=== PATIENT | female | born 2000 | race Caucasian/White ===

== ENCOUNTER 2020-03-03 20:15 | Inpatient (IN) | payer OTHER ==
[2020-03-03] MEDS ORDERED: Tranexamic Acid 1,000 MG in Sodium Chloride 0.9% 100 ML IV PRN (20:33)
[2020-03-03] MEDS ORDERED: Butorphanol 1 MG/ML SDV IVPUSH PRN (20:33)
[2020-03-03] MEDS ORDERED: Water For Irrigation,Sterile 1,000 ML Container IRR PRN (20:33)
[2020-03-03] MEDS ORDERED: Nalbuphine 10 MG/1 ML Vial IVPUSH PRN (20:33)
[2020-03-03] MEDS ORDERED: Sodium Chloride 0.9% 10 ML SDV IV PRN (20:33)
[2020-03-03] MEDS ORDERED: Sodium Chloride 0.9% 2.5 ML Syringe FLUSH PRN (20:33)
[2020-03-03] MEDS ORDERED: Sodium Chloride 0.9% 10 ML Syringe FLUSH PRN (20:33)
[2020-03-03] MEDS ORDERED: Ondansetron 4 MG/2 ML SDV IVPUSH PRN (20:33)
[2020-03-03] MEDS ORDERED: Lidocaine 1% 50 ML MDV INJECT PRN (20:33)
[2020-03-03] MEDS ORDERED: Misoprostol 200 MCG Tab PO PRN (20:33)
[2020-03-03] MEDS ORDERED: Methylergonovine 0.2 MG/1 ML Amp IM PRN (20:33)
[2020-03-03] MEDS ORDERED: Carboprost Tromethamine 250 MCG/1 ML Amp IM PRN (20:33)
[2020-03-03] MEDS ORDERED: Lactated Ringers 1,000 ML IV SCH (20:45)
[2020-03-03] MEDS ORDERED: fentaNYL 100 MCG/2 ML SDV ONE (22:01)
[2020-03-03] MEDS ORDERED: Ropivacaine HCl/PF 100 ML ONE (22:02)
--- NOTE | 2020-03-03 22:21 | PCM.PREANE ---
Preanesthetic Assessment - Anesthesia/Transfusion/Family Hx Anesthesia History: Prior Anesthesia Without Reaction Family History of Anesthesia Reaction: No Transfusion History: No Prior Transfusion(s) - Physical Assessment NPO Status Date: 03/03/20 NPO Status Time: 18:00 Weight: 74.389 kg ASA Class: 1 - Lab Values: Laboratory Last Values WBC 9.01 K/uL (4.0-11.0) 03/03/20 21:00 RBC 4.42 M/uL (4.30-5.90) 03/03/20 21:00 Hgb 12.4 g/dL (12.0-16.0) 03/03/20 21:00 Hct 37.2 % (36.0-46.0) 03/03/20 21:00 MCV 84.2 fL (80.0-98.0) 03/03/20 21:00 MCH 28.1 pg (27.0-32.0) 03/03/20 21:00 MCHC 33.3 g/dL (31.0-37.0) 03/03/20 21:00 RDW Std Deviation 39.8 fl (28.0-62.0) 03/03/20 21:00 RDW Coeff of Carrie 13 % (11.0-15.0) 03/03/20 21:00 Plt Count 244 K/uL (150-400) 03/03/20 21:00 MPV 10.30 fL (7.40-12.00) 03/03/20 21:00 Nucleated RBC % 0.0 /100WBC 03/03/20 21:00 Nucleated RBCs # 0 K/uL 03/03/20 21:00 Blood Type AB POSITIVE 03/03/20 21:00 Antibody Screen NEGATIVE 03/03/20 21:00 - Allergies Allergies/Adverse Reactions: Allergies Allergy/AdvReac Type Severity Reaction Status Date / Time No Known Allergies Allergy Verified 11/13/19 15:27 - Acknowledgements Anesthesia Type Planned: Epidural Pt an Appropriate Candidate for the Planned Anesthesia: Yes Alternatives and Risks of Anesthesia Discussed w Pt/Guardian: Yes Pt/Guardian Understands and Agrees with Anesthesia Plan: Yes PreAnesthesia Questionnaire - Past Health History Medical/Surgical History: Denies Medical/Surgical History HEENT History: Reports: None Cardiovascular History: Reports: None Respiratory History: Reports: None Gastrointestinal History: Reports: GERD Genitourinary History: Reports: None 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: Musculoskeletal History: Reports: None Neurological History: Reports: None Psychiatric History: Reports: None Endocrine/Metabolic History: Reports: None Hematologic History: Reports: None Immunologic History: Reports: None Oncologic (Cancer) History: Reports: None Dermatologic History: Reports: None - Infectious Disease History Infectious Disease History: Reports: None - Past Surgical History Head Surgeries/Procedures: Reports: None HEENT Surgical History: Reports: None Cardiovascular Surgical History: Reports: None Respiratory Surgical History: Reports: None GI Surgical History: Reports: None Female Surgical History: Reports: None Endocrine Surgical History: Reports: None Neurological Surgical History: Reports: None Musculoskeletal Surgical History: Reports: None - HOME MEDS Home Medications: Home Meds Pnv No.95/Ferrous Fum/Folic AC [ Multivitamin Tablet] 1 PO DAILY [History] - CURRENT (IN HOUSE) MEDS Current Meds: Current Medications Butorphanol Tartrate (Stadol) 1 mg IVPUSH Q1H PRN PRN Reason: Pain Carboprost Tromethamine (Hemabate Ds) 250 mcg IM ASDIRECTED PRN PRN Reason: Post Hemorrhage Lactated Ringer's (Ringers, Lactated) 1,000 mls @ 150 mls/hr IV ASDIRECTED [facility] Last Admin: 03/03/20 21:15 Dose: 150 mls/hr Oxytocin/Sodium Chloride (Oxytocin 30 Unit/500 Ml-Ns) 30 unit in 500 mls @ 500 mls/hr IV TITRATE [facility] Tranexamic Acid 1,000 mg/ (Sodium Chloride) 110 mls @ 660 mls/hr IV ONETIME PRN PRN Reason: Bleeding Lidocaine HCl (Xylocaine 1%) 50 ml INJECT ONETIME PRN PRN Reason: Laceration repair Methylergonovine Maleate (Methergine) 0.2 mg IM ASDIRECTED PRN PRN Reason: Post Hemorrhage Misoprostol (Cytotec) 200 mcg PO ONETIME PRN PRN Reason: Post Hemorrhage Nalbuphine HCl (Nubain) 10 mg IVPUSH Q1H PRN PRN Reason: Pain (severe 7-10) Ondansetron HCl (Zofran) 4 mg IVPUSH Q6H PRN PRN Reason: Nausea/Vomiting Sodium Chloride (Saline Flush) 10 ml FLUSH ASDIRECTED PRN PRN Reason: Keep Vein Open Sodium Chloride (Saline Flush) 2.5 ml FLUSH ASDIRECTED PRN PRN Reason: Keep Vein Open Sodium Chloride (Normal Saline) 10 ml IV ASDIRECTED PRN PRN Reason: IV Use Sterile Water (Sterile Water For Irrigation) 1,000 ml IRR ASDIRECTED PRN PRN Reason: delivery Discontinued Medications Fentanyl (Sublimaze) Confirm Administered Dose 100 mcg .ROUTE .STK-MED ONE Stop: 03/03/20 22:02 Ropivacaine (Naropin 0.2%) Confirm Administered Dose 100 mls @ as directed .ROUTE .STK-MED ONE Stop: 03/03/20 22:03
--- NOTE | 2020-03-03 22:24 | PCM.PRNOTE ---
- Free Text/Narrative Note: Anes NOte Aptient requests epidural for L&D. Sitting position, level L2-L3 midline approach. Sterile technique. Chloraprep scrub to lumbar area. Sterile fenestrated drape applied. Epidural spaced easily achieved single attempt with ease using ARACELI technique. ARACELI at 3 cm. Cath threaded 5 cm with ease. Cath secured a t10 cm at skin using sterile clear adhesive dressing. 2212-test 3 cc 1.5% lido with epi negative. 2215 load 10 cc 0.2% ropivicaine wtih 1 mcg cc fentanyl inslow divided doses. 2219 pump started wtih 90 cc same solution. Rate is 8 cc hr with 6 cc q 20 min prn bolus. Delaney well Time with patient [phone] Shakeel Rodriges [employer]
[2020-03-03] MEDS: Oxytocin/0.9 % Sodium Chloride 30 UNIT/500 ML BAG IV SCH (23:44)
--- NOTE | 2020-03-04 00:15 | PCM.DEL ---
L & D Note - General Info Date of Service: 03/04/20 - Delivery Note Labor: Spontaneous Delivery Outcome: Livebirth Delivery Method: Spontaneous Vaginal Delivery-Single Presentation: Left Occiput Anterior (GABBY) Nuchal Cord: None Anesthesia Type: None Local Anesthetic Volume: 2cc Episiotomy Type: None Laceration: None Cord: 3 Vessels Estimated Blood Loss: 300 Resuscitation Needed: No Score 1 min: 8 Score 5 min: 9 Delivery Comments (Free Text/Narrative):: Live female delivered at 2341 , weight 3140g 8/9 - General Info Date of Service: 03/04/20 - Patient Data Weight - Most Recent: 74.389 kg Lab Results Last 24 Hours: Laboratory Results - last 24 hr 03/03/20 03/03/20 Range/Units 21:00 21:00 WBC 9.01 (4.0-11.0) K/uL RBC 4.42 (4.30-5.90) M/uL Hgb 12.4 (12.0-16.0) g/dL Hct 37.2 (36.0-46.0) % MCV 84.2 (80.0-98.0) fL MCH 28.1 (27.0-32.0) pg MCHC 33.3 (31.0-37.0) g/dL RDW Std Deviation 39.8 (28.0-62.0) fl RDW Coeff of Carrie 13 (11.0-15.0) % Plt Count 244 (150-400) K/uL MPV 10.30 (7.40-12.00) fL Nucleated RBC % 0.0 /100WBC Nucleated RBCs # 0 K/uL Blood Type AB POSITIVE Antibody Screen NEGATIVE Med Orders - Current: Current Medications Butorphanol Tartrate (Stadol) 1 mg IVPUSH Q1H PRN PRN Reason: Pain Carboprost Tromethamine (Hemabate Ds) 250 mcg IM ASDIRECTED PRN PRN Reason: Post Hemorrhage Lactated Ringer's (Ringers, Lactated) 1,000 mls @ 150 mls/hr IV ASDIRECTED [facility] Last Admin: 03/03/20 21:15 Dose: 150 mls/hr Oxytocin/Sodium Chloride (Oxytocin 30 Unit/500 Ml-Ns) 30 unit in 500 mls @ 500 mls/hr IV TITRATE [facility] Last Admin: 03/03/20 23:44 Dose: 500 mls/hr Tranexamic Acid 1,000 mg/ (Sodium Chloride) 110 mls @ 660 mls/hr IV ONETIME PRN PRN Reason: Bleeding Lidocaine HCl (Xylocaine 1%) 50 ml INJECT ONETIME PRN PRN Reason: Laceration repair Methylergonovine Maleate (Methergine) 0.2 mg IM ASDIRECTED PRN PRN Reason: Post Hemorrhage Misoprostol (Cytotec) 200 mcg PO ONETIME PRN PRN Reason: Post Hemorrhage Nalbuphine HCl (Nubain) 10 mg IVPUSH Q1H PRN PRN Reason: Pain (severe 7-10) Ondansetron HCl (Zofran) 4 mg IVPUSH Q6H PRN PRN Reason: Nausea/Vomiting Sodium Chloride (Saline Flush) 10 ml FLUSH ASDIRECTED PRN PRN Reason: Keep Vein Open Sodium Chloride (Saline Flush) 2.5 ml FLUSH ASDIRECTED PRN PRN Reason: Keep Vein Open Sodium Chloride (Normal Saline) 10 ml IV ASDIRECTED PRN PRN Reason: IV Use Sterile Water (Sterile Water For Irrigation) 1,000 ml IRR ASDIRECTED PRN PRN Reason: delivery Last Admin: 03/03/20 23:51 Dose: 1,000 ml Discontinued Medications Fentanyl (Sublimaze) Confirm Administered Dose 100 mcg .ROUTE .STK-MED ONE Stop: 03/03/20 22:02 Ropivacaine (Naropin 0.2%) Confirm Administered Dose 100 mls @ as directed .ROUTE .STK-MED ONE Stop: 03/03/20 22:03 - Problem List & Annotations (1) Vaginal delivery SNOMED Code(s): 732777347 Code(s): O80 - ENCOUNTER FOR FULL-TERM UNCOMPLICATED DELIVERY Status: Acute Current Visit: No - Problem List Review Problem List Initiated/Reviewed/Updated: Yes - My Orders Last 24 Hours: My Active Orders 03/03/20 20:33 Patient Status [ADT] Routine May Shower [RC] ASDIRECTED Notify Provider [RC] PRN Up ad Brenda [RC] ASDIRECTED Vital Signs [RC] PER UNIT ROUTINE Butorphanol [Stadol] 1 mg IVPUSH Q1H PRN Carboprost Tromethamine [Hemabate DS] 250 mcg IM ASDIRECTED PRN Lidocaine 1% [Xylocaine 1%] 50 ml INJECT ONETIME PRN Methylergonovine [Methergine] 0.2 mg IM ASDIRECTED PRN Nalbuphine [Nubain] 10 mg IVPUSH Q1H PRN Ondansetron [Zofran] 4 mg IVPUSH Q6H PRN Sodium Chloride 0.9% [Normal Saline] 10 ml IV ASDIRECTED PRN Sodium Chloride 0.9% [Saline Flush] 10 ml FLUSH ASDIRECTED PRN Sodium Chloride 0.9% [Saline Flush] 2.5 ml FLUSH ASDIRECTED PRN Tranexamic Acid [Cyklokapron] 1,000 mg Sodium Chloride 0.9% [Normal Saline] 100 ml IV ONETIME Water For Irrigation,Sterile [Sterile Water for Irrigation] 1,000 ml IRR ASDIRECTED PRN miSOPROStoL [Cytotec] 200 mcg PO ONETIME PRN Scalp Electrode [WOMSER] Per Unit Routine Peripheral IV Insertion Adult [OM.PC] Routine Resuscitation Status Routine 03/03/20 20:45 Lactated Ringers [Ringers, Lactated] 1,000 ml IV ASDIRECTED Oxytocin/0.9 % Sodium Chloride [Oxytocin 30 Unit/500 ML-NS] 30 unit in 500 ml IV TITRATE 03/03/20 21:00 RPR (SYPHILIS SERO) W/ RFLX [REF] Routine
[2020-03-04] MEDS ORDERED: Witch Hazel Medicated Pads 40/Jar TOP PRN (00:18)
[2020-03-04] MEDS ORDERED: Ibuprofen 800 MG Tab PO PRN (00:18)
[2020-03-04] MEDS ORDERED: Acetaminophen 500 MG Tab PO PRN ×2 (00:18)
[2020-03-04] MEDS ORDERED: Bisacodyl 10 MG Supp RECTAL PRN (00:18)
[2020-03-04] MEDS ORDERED: Ibuprofen 400 MG Tab PO PRN (00:18)
[2020-03-04] MEDS ORDERED: Docusate Sodium 100 MG Cap PO PRN (00:18)
[2020-03-04] MEDS ORDERED: Lanolin 100% Cream 7 GM Tube TOP PRN (00:18)
[2020-03-04] MEDS ORDERED: oxyCODONE 5 MG Tab PO PRN (00:18)
[2020-03-04] MEDS ORDERED: Benzocaine/Menthol 20%-0.5% Spray 78 GM Cannister TOP PRN (00:18)
[2020-03-04] MEDS: Oxytocin/0.9 % Sodium Chloride 30 UNIT/500 ML BAG IV SCH (01:00)
--- NOTE | 2020-03-04 11:16 | OR ---
SURGEON: ATUL KOWALSKI DATE OF PROCEDURE: 03/04/2020 PREOPERATIVE DIAGNOSIS: A 19-year-old G2, P1-0-0-1 at 39 weeks, who came in early labor. POSTOPERATIVE DIAGNOSIS: A 19-year-old G2, P1-0-0-1 at 39 weeks, who came in early labor. PROCEDURE: Normal spontaneous vaginal delivery. ANESTHESIA: Epidural. ESTIMATED BLOOD LOSS: 300 mL. NOTES AND FINDINGS: A live female delivered at 2341. scores are 8 and 9. Weight is 3140 g. BRIEF HISTORY ABOUT THE PATIENT: She is a 19-year-old G2, P1-0-0-1 low-risk patient, who came in complaining of contractions. She was noted to be about 6 cm dilated. She was requesting epidural, which she got. She made a normal labor progress. After being AROM'ed, clear fluid was noted. Then, she became fully dilated. DESCRIPTION OF PROCEDURE: With the patient being fully dilated, she was encouraged to push. With good pushing effort, she delivered the head, subsequently by the anterior and posterior shoulders. The body of the baby was delivered. The infant was placed on maternal abdomen. Delayed cord clamping was observed. Cord blood gases were obtained. The placenta was delivered via controlled cord traction. Perineum was inspected and noted to be hemostatic and intact . Uterus was noted to be well contracted. All instrument and pad counts were correct x2. The patient was left in the labor and delivery room in stable condition. IMAN ARMENDARIZ /[id number] JIM
--- NOTE | 2020-03-04 14:00 | PCM48HPAN ---
Post Anesthesia Note - EVALUATION WITHIN 48HRS OF ANESTHETIC Vital Signs in Normal Range: Yes Patient Participated in Evaluation: Yes Respiratory Function Stable: Yes Airway Patent: Yes Cardiovascular Function Stable: Yes Hydration Status Stable: Yes Pain Control Satisfactory: Yes Nausea and Vomiting Control Satisfactory: Yes Mental Status Recovered: Yes Vital Signs: Last Vital Signs Temp 36.4 C 03/04/20 07:40 Pulse 56 L 03/04/20 07:40 Resp 16 03/04/20 07:40 BP 103/57 L 03/04/20 07:40 Pulse Ox 96 03/04/20 07:40 - COMMENTS/OBSERVATIONS Free Text/Narrative:: Did well. No problems noted.
--- NOTE | 2020-03-04 16:38 | PCM.PN ---
- General Info Date of Service: 03/04/20 Functional Status: Reports: Pain Controlled, Tolerating Diet, Ambulating, Urinating - Review of Systems General: Reports: No Symptoms HEENT: Reports: No Symptoms Pulmonary: Reports: No Symptoms Cardiovascular: Reports: No Symptoms Gastrointestinal: Reports: No Symptoms Genitourinary: Reports: No Symptoms Musculoskeletal: Reports: No Symptoms Skin: Reports: No Symptoms Neurological: Reports: No Symptoms Psychiatric: Reports: No Symptoms - Patient Data Vitals - Most Recent: Last Vital Signs Temp 36.4 C 03/04/20 07:40 Pulse 56 L 03/04/20 07:40 Resp 16 03/04/20 07:40 BP 103/57 L 03/04/20 07:40 Pulse Ox 96 03/04/20 07:40 Weight - Most Recent: 164 lb Lab Results Last 24 Hours: Laboratory Results - last 24 hr 03/03/20 03/03/20 Range/Units 21:00 21:00 WBC 9.01 (4.0-11.0) K/uL RBC 4.42 (4.30-5.90) M/uL Hgb 12.4 (12.0-16.0) g/dL Hct 37.2 (36.0-46.0) % MCV 84.2 (80.0-98.0) fL MCH 28.1 (27.0-32.0) pg MCHC 33.3 (31.0-37.0) g/dL RDW Std Deviation 39.8 (28.0-62.0) fl RDW Coeff of Carrie 13 (11.0-15.0) % Plt Count 244 (150-400) K/uL MPV 10.30 (7.40-12.00) fL Nucleated RBC % 0.0 /100WBC Nucleated RBCs # 0 K/uL Blood Type AB POSITIVE Antibody Screen NEGATIVE Med Orders - Current: Current Medications Acetaminophen (Tylenol Extra Strength) 500 mg PO Q4H PRN PRN Reason: Pain Acetaminophen (Tylenol Extra Strength) 1,000 mg PO Q4H PRN PRN Reason: Pain Benzocaine/Menthol (Dermoplast Pain Relief 20%-0.5% [place]) 78 gm TOP ASDIRECTED PRN PRN Reason: Perineal Comfort Measure Bisacodyl (Dulcolax) 10 mg RECTAL ONETIME PRN PRN Reason: Constipation Carboprost Tromethamine (Hemabate Ds) 250 mcg IM ASDIRECTED PRN PRN Reason: Post Hemorrhage Docusate Sodium (Colace) 100 mg PO BID PRN PRN Reason: Constipation Emollient Ointment (Lansinoh Hpa) 0 gm TOP ASDIRECTED PRN PRN Reason: Sore Nipples Lactated Ringer's (Ringers, Lactated) 1,000 mls @ 150 mls/hr IV ASDIRECTED [facility] Last Admin: 03/03/20 21:15 Dose: 150 mls/hr Oxytocin/Sodium Chloride (Oxytocin 30 Unit/500 Ml-Ns) 30 unit in 500 mls @ 500 mls/hr IV TITRATE [facility] Last Admin: 03/04/20 01:00 Dose: 500 mls/hr Ibuprofen (Motrin) 400 mg PO Q4H PRN PRN Reason: Pain Ibuprofen (Motrin) 800 mg PO Q6H PRN PRN Reason: Pain Lidocaine HCl (Xylocaine 1%) 50 ml INJECT ONETIME PRN PRN Reason: Laceration repair Methylergonovine Maleate (Methergine) 0.2 mg IM ASDIRECTED PRN PRN Reason: Post Hemorrhage Misoprostol (Cytotec) 200 mcg PO ONETIME PRN PRN Reason: Post Hemorrhage Nalbuphine HCl (Nubain) 10 mg IVPUSH Q1H PRN PRN Reason: Pain (severe 7-10) Ondansetron HCl (Zofran) 4 mg IVPUSH Q6H PRN PRN Reason: Nausea/Vomiting Oxycodone HCl (Oxycodone) 5 mg PO Q2H PRN PRN Reason: Pain Sodium Chloride (Saline Flush) 10 ml FLUSH ASDIRECTED PRN PRN Reason: Keep Vein Open Sodium Chloride (Saline Flush) 2.5 ml FLUSH ASDIRECTED PRN PRN Reason: Keep Vein Open Sodium Chloride (Normal Saline) 10 ml IV ASDIRECTED PRN PRN Reason: IV Use Sterile Water (Sterile Water For Irrigation) 1,000 ml IRR ASDIRECTED PRN PRN Reason: delivery Last Admin: 03/03/20 23:51 Dose: 1,000 ml Witch Liane (Tucks) 1 pad TOP ASDIRECTED PRN PRN Reason: comfort care Discontinued Medications Butorphanol Tartrate (Stadol) 1 mg IVPUSH Q1H PRN PRN Reason: Pain Stop: 03/04/20 00:17 Fentanyl (Sublimaze) Confirm Administered Dose 100 mcg .ROUTE .STK-MED ONE Stop: 03/03/20 22:02 Last Admin: 03/04/20 07:28 Dose: Not Given Tranexamic Acid 1,000 mg/ (Sodium Chloride) 110 mls @ 660 mls/hr IV ONETIME PRN PRN Reason: Bleeding Ropivacaine (Naropin 0.2%) Confirm Administered Dose 100 mls @ as directed .ROUTE .STK-MED ONE Stop: 03/03/20 22:03 Last Admin: 03/04/20 07:28 Dose: Not Given - Exam General: Alert, Oriented, Cooperative, No Acute Distress HEENT: Pupils Equal, Pupils Reactive Neck: Supple, Trachea Midline, No JVD Lungs: Normal Respiratory Effort Cardiovascular: Regular Rate, Regular Rhythm, No Murmurs GI/Abdominal Exam: Soft, Non-Tender, No Organomegaly, No Distention Back Exam: Normal Inspection, Full Range of Motion Extremities: Normal Inspection, Normal Range of Motion, Non-Tender, No Pedal Edema Skin: Warm, Dry, Intact Neurological: No New Focal Deficit Psy/Mental Status: Alert, Normal Affect, Normal Mood Sepsis Event Note - Evaluation Sepsis Screening Result: No Definite Risk - Focused Exam Vital Signs: Vital Signs Temp Pulse Resp BP Pulse Ox 03/04/20 07:40 36.4 C 56 L 16 103/57 L 96 Date Exam was Performed: 03/04/20 Time Exam was Performed: 16:34 - Problem List Review Problem List Initiated/Reviewed/Updated: Yes - Assessment Assessment:: 19yo PPD0 s/p , stable and recovering well. - Plan Plan:: vitals stable. Bleeding light, denies s/s of anemia Tolerating PO and ambulating. Desires to go home tonight after 24hrs, stable for discharge, given care instructions.
[2020-03-04 20:21] VITALS: BP 113/77; PULSE 68
== END 2020-03-04 23:58 | disposition home or self-care (01) | DRG 807 ==
LOC: MW.OBCHECK 20:15 → MW.OB 20:15 → OBSVTOIN 23:41 → MW.OBCHECK 23:41 → MW.OB 03-04 02:46
PROVIDERS: ADMIT Obstetrics & Gynecology; ATTEND Obstetrics & Gynecology
PROC: 10E0XZZ Delivery of Products of Conception, External Approach (ICD-10-PCS; principal; 2020-03-03)
PROC: 3E0R3BZ Introduction of Anesthetic Agent into Spinal Canal, Percutaneous Approach (ICD-10-PCS; 2020-03-03)
DX: O80 Encounter for full-term uncomplicated delivery (principal); Z37.0 Single live birth; Z3A.39 39 weeks gestation of pregnancy
CPT/HCPCS: 36415; 59025; 59409; 85027; 86592; 86593; 86850; 86900; 86901; J2590; J7120

== ENCOUNTER 2021-04-02 09:28 | Emergency (ER) | payer BC, OTHER ==
[2021-04-02] MEDS ORDERED: Ketorolac 15 MG/ML SDV IVPUSH ONE (09:54)
[2021-04-02 10:24] LABS: BLOOD UREA NITROGEN,BUN 10 mg/dL (7.0-18.0); CARBON DIOXIDE,CO2 26.3 mmol/L (21.0-32.0); CHLORIDE,CL 104 mmol/L (98-107); GLUCOSE RANDOM 91 mg/dL (74-106); LIPASE 110 U/L (73-393); POTASSIUM,K 3.7 mmol/L (3.5-5.1); SODIUM,NA 139 mmol/L (136-145)
[2021-04-02] MEDS ORDERED: Iopamidol 755 MG/ML 500 ML Multipack Bottle IVPUSH STA (11:37)
--- NOTE | 2021-04-02 12:44 | CT ---
INDICATION: Right lower quadrant pain and flank pain. TECHNIQUE: CT of the abdomen and pelvis without and with 100 cc Isovue 370 IV contrast. Coronal and sagittal reconstructions. COMPARISON: None. FINDINGS: Small low-attenuation lesion in the lateral segment of the left hepatic lobe is too small to characterize but most likely benign (series 301, image 50). Hepatic and portal veins are patent. The gallbladder, spleen, pancreas, and adrenal glands are negative. Symmetric enhancement of the kidneys. No hydronephrosis. No obstructing urinary calculi. Phlebolith in the left pelvis adjacent to the distal left ureter. The bladder and uterus are normal in appearance. Mildly prominent periuterine vessels bilaterally. Physiologic follicles in both ovaries. There are multiple fluid distended loops of distal small bowel in the pelvis with wall thickening, likely representing a nonspecific enteritis (series 301, image 117). No evidence of bowel obstruction. The colon is normal in appearance. Negative appendix. No intraperitoneal free air or fluid. Small fat containing midline ventral hernia. There appears to be some skin thickening at the umbilicus. No lymphadenopathy. The bones are unremarkable. The lung bases are clear. IMPRESSION: Multiple fluid distended loops of small bowel in the pelvis with wall thickening likely representing a nonspecific enteritis. Please note that all CT scans at this facility use dose modulation, iterative reconstruction, and/or weight-based dosing when appropriate to reduce radiation dose to as low as reasonably achievable. Dictated by Lennie Cruz MD @ 04/02/2021 12:41:[address] Lennie Cruz @ Apr 02 2021 12:41PM
--- NOTE | 2021-04-02 13:04 | EDM.PDOC ---
ED HPI GENERAL MEDICAL PROBLEM - General Chief Complaint: Abdominal Pain Stated Complaint: ABD PAIN Time Seen by Provider: 04/02/21 09:44 - History of Present Illness INITIAL COMMENTS - FREE TEXT/NARRATIVE: CHIEF COMPLAINT(S): Right lower quadrant abdominal pain HISTORY OF PRESENT ILLNESS: This is a 21-year-old woman in with out any significant past medical history who comes to the emergency department with a chief complaint of right lower quadrant abdominal pain. The patient states that she is experiencing right lower quadrant abdominal pain that wraps around her lower part of her abdomen rated 6 out of 10 and intermittent sharp. She states that she has associated nausea but no vomiting or diarrhea. She has not yet tried any pain medication. She denies any aggravating factors such as eating or movement. She denies any relieving factors. She states that it got worse last night around 10 PM. She denies any dysuria, hematuria, vaginal bleeding or vaginal discharge. She denies any fevers or chills. She states that she is concerned about appendicitis. She denies any history of kidney stones and her last menstrual period was approximately 2 weeks ago. REVIEW OF SYSTEMS: Constitutional: Denies fever, chills. Eyes: Denies eye pain Ears, Nose, Mouth, & Throat: Denies earache Cardiovascular: Denies chest pain Respiratory: Denies shortness of breath Gastrointestinal: Positive for right lower quadrant abdominal pain and nausea. Denies vomiting, diarrhea, hematochezia. Genitourinary: Denies hematuria, vaginal bleeding, vaginal discharge skin:Denies a rash MSK: Denies joint pain Neurological: Denies blurred vision Psychiatric: Denies depression PAST MEDICAL HISTORY: As per history of present illness and as reviewed below otherwise noncontributory. SURGICAL HISTORY: As per history of present illness and as reviewed below otherwise noncontributory. LMP: 2 weeks ago SOCIAL HISTORY: As per history of present illness and as reviewed below otherwise noncontributory. FAMILY HISTORY: As per history of present illness and as reviewed below otherwise noncontributory. EXAMINATION OF ORGAN SYSTEMS/BODY AREAS: Constitutional: Blood pressure is 131/79, heart rate 83, respiratory rate 18 wit h an oxygen saturation 96% on room air. Temperature 36.3 General: Overall well-appearing woman who is in no acute distress. Psychiatric: Appropriate mood and affect. Eyes: No scleral icterus or conjunctival erythema ENMT: Moist mucous membranes. No pharyngeal erythema Cardiovascular: Regular, rate, and rhythm. No gallops, murmurs, or rubs. Bilateral upper extremity pulses symmetric and intact. No peripheral edema. No JVD. Respiratory: Lungs clear to auscultation bilaterally. No wheezes, rales, or rhonchi. Gastrointestinal: Soft, tenderness to palpation in the right upper quadrant. No rebound or guarding. Nondistended. Positive Nunes's. Negative McBurney's. Normoactive bowel sounds Genitourinary: Mild suprapubic tenderness. No CVA tenderness Musculoskeletal: Normal range of motion. Skin: No lesions or abrasions. Neurological: Alert, GCS 15 MEDICAL DECISION MAKING AND COURSE IN THE ED WITH INTERPRETATION/REVIEW OF DIAGNOSTIC STUDIES: This is a 21-year-old woman without any significant past medical history who comes to the emergency department with a acute right lower quadrant abdominal pain who has right upper quadrant abdominal pain on examination who has stable vital signs. At this time will obtain a qualitative hCG. I did discuss with her that I did perform a bedside ultrasound to evaluate for cholecystitis. Bedside right upper quadrant ultrasound Multiple views of the gallbladder were obtained and there was no evidence of gallbladder wall thickening, cholelithiasis or CBD dilation. Report was printed and placed in chart. Given that the right upper quadrant ultrasound is negative we will obtain labs including CBC, CMP, lipase. Will obtain a urinalysis. In addition we will obtain a CT with and without contrast to evaluate for appendicitis versus nephrolithiasis given her description of her symptoms. I did offer the patient pain medication and she did not want any at this time. The radiological images were viewed by myself along with reading the report from the radiologist. CT abdomen pelvis with and without contrast does not reveal any evidence of appendicitis, cholelithiasis. There are multiple fluid distended loops of the distal small bowel in the pelvis with wall thickening likely representing nonspecific enteritis. No evidence of bowel obstruction. The colon is normal in appearance. There is a mild fat-containing ventral hernia. After imaging I did discuss results with the patient. Her vitals continue to remain stable and she did not have any vomiting. I did discuss with her at this time that the only abnormality found was colitis. I discussed with her symptomatic treatment of this if she were to develop worsening symptoms. She states that her daughter did just have an episode of nausea, vomiting, and diarrhea. She was amenable discharge at this time and had no further questions. She was given strict return precautions. DISPOSITION: The patient was discharged home in stable condition. The patient will follow up with primary care physician in 3 to 5 days CONDITION: Fair PROCEDURES: Bedside right upper quadrant ultrasound FINAL IMPRESSION(S)/DIAGNOSES: 1 1. Acute abdominal pain likely secondary to colitis Javier Evans M.D. RLQ Pain Score (Numeric/FACES): 6 - Related Data Allergies Allergy/AdvReac Type Severity Reaction Status Date / Time No Known Allergies Allergy Verified 04/02/21 09:44 Home Meds: Home Meds . [No Known Home Meds] 04/02/21 [History] Past Medical History - Past Health History Medical/Surgical History: Denies Medical/Surgical History HEENT History: Reports: None Cardiovascular History: Reports: None Respiratory History: Reports: None Gastrointestinal History: Reports: GERD Genitourinary History: Reports: None [employer]IST History: Reports: Musculoskeletal History: Reports: None Neurological History: Reports: None Psychiatric History: Reports: None Endocrine/Metabolic History: Reports: None Hematologic History: Reports: None Immunologic History: Reports: None Oncologic (Cancer) History: Reports: None Dermatologic History: Reports: None - Infectious Disease History Infectious Disease History: Reports: None - Past Surgical History Head Surgeries/Procedures: Reports: None HEENT Surgical History: Reports: None Cardiovascular Surgical History: Reports: None Respiratory Surgical History: Reports: None GI Surgical History: Reports: None Female Surgical History: Reports: None Endocrine Surgical History: Reports: None Neurological Surgical History: Reports: None Musculoskeletal Surgical History: Reports: None Social & Family History - Family History Family Medical History: No Pertinent Family History - Tobacco Use Tobacco Use Status *Q: Never Tobacco User Second Hand Smoke Exposure: No - Caffeine Use Caffeine Use: Reports: None - Recreational Drug Use Recreational Drug Use: No ED ROS GENERAL - Review of Systems Review Of Systems: See Below ED EXAM, GENERAL - Physical Exam Exam: See Below Course - Vital Signs Last Recorded V/S: Last Vital Signs Temp 36.4 C 04/02/21 13:12 Pulse 95 04/02/21 13:12 Resp 14 04/02/21 11:53 BP 117/54 L 04/02/21 13:12 Pulse Ox 97 04/02/21 13:12 - Orders/Labs/Meds Labs: Laboratory Tests 04/02/21 04/02/21 04/02/21 Range/Units 09:41 09:41 09:42 WBC 9.61 (4.0-11.0) K/uL RBC 5.06 (4.30-5.90) M/uL Hgb 14.7 (12.0-16.0) g/dL Hct 43.5 (36.0-46.0) % MCV 86.0 (80.0-98.0) fL MCH 29.1 (27.0-32.0) pg MCHC 33.8 (31.0-37.0) g/dL RDW Std Deviation 41.4 (28.0-62.0) fl RDW Coeff of Carrie 13 (11.0-15.0) % Plt Count 271 (150-400) K/uL MPV 10.20 (7.40-12.00) fL Neut % (Auto) 75.8 (48.0-80.0) % Lymph % (Auto) 17.8 (16.0-40.0) % Karnes % (Auto) 5.6 (0.0-15.0) % Eos % (Auto) 0.5 (0.0-7.0) % Baso % (Auto) 0.3 (0.0-1.5) % Neut # (Auto) 7.3 H (1.4-5.7) K/uL Lymph # (Auto) 1.7 (0.6-2.4) K/uL Karnes # (Auto) 0.5 (0.0-0.8) K/uL Eos # (Auto) 0.1 (0.0-0.7) K/uL Baso # (Auto) 0.0 (0.0-0.1) K/uL Nucleated RBC % 0.0 /100WBC Nucleated RBCs # 0 K/uL Sodium (136-145) mmol/L Potassium (3.5-5.1) mmol/L Chloride (98-107) mmol/L Carbon Dioxide (21.0-32.0) mmol/L BUN (7.0-18.0) mg/dL Creatinine (0.6-1.0) mg/dL Est Cr Clr Drug Dosing mL/min Estimated GFR (MDRD) ml/min Glucose (74-106) mg/dL Calcium (8.5-10.1) mg/dL Total Bilirubin (0.2-1.0) mg/dL AST (15-37) IU/L ALT (14-63) IU/L Alkaline Phosphatase (46-116) U/L Total Protein (6.4-8.2) g/dL Albumin (3.4-5.0) g/dL Globulin (2.6-4.0) g/dL Albumin/Globulin Ratio (0.9-1.6) Lipase (73-393) U/L Urine Color YELLOW Urine Appearance CLEAR Urine pH 7.5 (5.0-8.0) Ur Specific Kent 1.010 (1.001-1.035) Urine Protein NEGATIVE (NEGATIVE) mg/dL Urine Glucose (UA) NEGATIVE (NEGATIVE) mg/dL Urine Ketones NEGATIVE (NEGATIVE) mg/dL Urine Occult Blood NEGATIVE (NEGATIVE) Urine Nitrite NEGATIVE (NEGATIVE) Urine Bilirubin NEGATIVE (NEGATIVE) Urine Urobilinogen 0.2 (<2.0) EU/dL Ur Leukocyte Esterase NEGATIVE (NEGATIVE) Urine HCG, Qual NEGATIVE (NEGATIVE) 04/02/21 Range/Units 09:52 WBC (4.0-11.0) K/uL RBC (4.30-5.90) M/uL Hgb (12.0-16.0) g/dL Hct (36.0-46.0) % MCV (80.0-98.0) fL MCH (27.0-32.0) pg MCHC (31.0-37.0) g/dL RDW Std Deviation (28.0-62.0) fl RDW Coeff of Carrie (11.0-15.0) % Plt Count (150-400) K/uL MPV (7.40-12.00) fL Neut % (Auto) (48.0-80.0) % Lymph % (Auto) (16.0-40.0) % Karnes % (Auto) (0.0-15.0) % Eos % (Auto) (0.0-7.0) % Baso % (Auto) (0.0-1.5) % Neut # (Auto) (1.4-5.7) K/uL Lymph # (Auto) (0.6-2.4) K/uL Karnes # (Auto) (0.0-0.8) K/uL Eos # (Auto) (0.0-0.7) K/uL Baso # (Auto) (0.0-0.1) K/uL Nucleated RBC % /100WBC Nucleated RBCs # K/uL Sodium 139 (136-145) mmol/L Potassium 3.7 (3.5-5.1) mmol/L Chloride 104 (98-107) mmol/L Carbon Dioxide 26.3 (21.0-32.0) mmol/L BUN 10 (7.0-18.0) mg/dL Creatinine 0.7 (0.6-1.0) mg/dL Est Cr Clr Drug Dosing 122.73 mL/min Estimated GFR (MDRD) > 60.0 ml/min Glucose 91 (74-106) mg/dL Calcium 8.5 (8.5-10.1) mg/dL Total Bilirubin 0.4 (0.2-1.0) mg/dL AST 15 (15-37) IU/L ALT 23 (14-63) IU/L Alkaline Phosphatase 45 L (46-116) U/L Total Protein 7.4 (6.4-8.2) g/dL Albumin 4.1 (3.4-5.0) g/dL Globulin 3.3 (2.6-4.0) g/dL Albumin/Globulin Ratio 1.2 (0.9-1.6) Lipase 110 (73-393) U/L Urine Color Urine Appearance Urine pH (5.0-8.0) Ur Specific Kent (1.001-1.035) Urine Protein (NEGATIVE) mg/dL Urine Glucose (UA) (NEGATIVE) mg/dL Urine Ketones (NEGATIVE) mg/dL Urine Occult Blood (NEGATIVE) Urine Nitrite (NEGATIVE) Urine Bilirubin (NEGATIVE) Urine Urobilinogen (<2.0) EU/dL Ur Leukocyte Esterase (NEGATIVE) Urine HCG, Qual (NEGATIVE) Meds: Medications Discontinued Medications Generic Name Dose Route Start Last Admin Trade Name Freq PRN Reason Stop Dose Admin Iopamidol 100 ml 04/02/21 11:37 04/02/21 11:45 Iopamidol 755 Mg/Ml 500 Ml Multipack Bottle IVPUSH 04/02/21 11:38 100 ml ONETIME STA Administration Ketorolac Tromethamine 15 mg 04/02/21 09:54 05/19/21 10:19 Ketorolac 15 Mg/Ml Sdv IVPUSH 04/02/21 09:55 Not Given ONETIME ONE Departure - Departure Time of Disposition: 13:03 Disposition: Home, Self-Care 01 Condition: Fair Clinical Impression: Colitis - Discharge Information Instructions: Colitis Referrals: PCP,None [Primary Care Provider] - Forms: ED Department Discharge Additional Instructions: You evaluate today on an emergent basis. All your lab work-up was normal. Your CT did show some evidence of small bowel wall thickening with some fluid in your bowel which is indicative of a colitis. This could just be early stomach flu. Given that she has not had any vomiting or diarrhea I would still continue with a bland diet including soups and maintain fluid hydration. If you have any worsening abdominal pain, blood in your stool, inability to eat or drink I would return to the emergency department. Otherwise please follow-up with your primary care physician within 3 to 5 days. At this time for the diarrhea we do recommend: -Please keep hydrated with Pedialyte or Gatorade -Diet: eat potatoes, noodles, rice, crackers, soup, boiled vegetables -AVOID: fatty foods and dairy -You may purchase over the counter probiotics that do not contain dairy We do not recommend antibiotics at this time. Antibiotics can worsen the diarrhea and have unwanted side effects Please return to ER if you have fever, bloody stools, or inability to tolerate fluids [facility] [address] [place] [address] [place] [address] The patient is informed of any results of their evaluation and diagnostic workup and all questions are answered. They are given discharge instructions and return precautions. The patient is stable for discharge. The patient states they understand and agree with the plan and that they will return if their symptoms get worse or if they have any new concerns. The following information is given to patients seen in the emergency department who are being discharged to home. This information is to outline your options for follow-up care. We provide all patients seen in our emergency department with a follow-up referral. The need for follow-up, as well as the timing and circumstances, are variable depending upon the specifics of your emergency department visit. If you don't have a primary care physician on staff, we will provide you with a referral. We always advise you to contact your personal physician following an emergency department visit to inform them of the circumstance of the visit and for follow-up with them and/or the need for any referrals to a consulting specialist. The emergency department will also refer you to a specialist when appropriate. This referral assures that you have the opportunity for follow-up care with a specialist. All of these measure are taken in an effort to provide you with optimal care, which includes your follow-up. Under all circumstances we always encourage you to contact your private physician who remains a resource for coordinating your care. When calling for follow-up care, please make the office aware that this follow-up is from your recent emergency room visit. If for any reason you are refused follow-up, please contact the [facility] Emergency Department at and asked to speak to the emergency department charge nurse. Sepsis Event Note (ED) - Evaluation Sepsis Screening Result: No Definite Risk - Focused Exam Vital Signs: Vital Signs Temp Pulse Resp BP Pulse Ox 04/02/21 13:12 36.4 C 95 117/54 L 97 04/02/21 11:53 36.2 C 80 14 116/64 99 04/02/21 11:31 60 16 111/66 98 04/02/21 09:42 36.3 C 83 18 131/79 96
[2021-04-02 13:13] VITALS: BP 117/54; PULSE 95
== END 2021-04-02 13:15 | disposition home or self-care (01) ==
LOC: MW.ED 09:28
DX: K52.9 Noninfective gastroenteritis and colitis, unspecified (principal)
CPT/HCPCS: 36415; 74178; 80053; 81003; 81025; 83690; 85025; 99284; Q9967

== ENCOUNTER 2023-01-06 19:42 | Emergency (ER) | payer BC ==
[2023-01-06] MEDS ORDERED: Sodium Chloride 0.9% 1,000 ML IV ONE (19:54)
[2023-01-06] MEDS ORDERED: Sodium Chloride 0.9% 10 ML Syringe FLUSH PRN (19:54)
[2023-01-06] MEDS ORDERED: Sodium Chloride 0.9% 2.5 ML Syringe FLUSH PRN (19:54)
[2023-01-06] MEDS ORDERED: Ondansetron 4 MG/2 ML SDV IVPUSH ONE (20:03)
[2023-01-06 20:44] LABS: CARBON DIOXIDE,CO2 23.7 mmol/L (21.0-32.0); POTASSIUM,K 3.4 mmol/L (3.5-5.1)
[2023-01-06] MEDS ORDERED: Nitrofurantoin Monohydrate/Macrocrystalline 100 MG Cap PO SCH (22:45)
[2023-01-06 23:16] VITALS: BP 124/72; PULSE 91
== END 2023-01-06 23:16 | disposition home or self-care (01) ==
LOC: MW.ED 19:42
DX: O20.0 Threatened abortion (principal); O23.41 Unspecified infection of urinary tract in pregnancy, first trimester; N39.0 Urinary tract infection, site not specified; Z3A.10 10 weeks gestation of pregnancy
CPT/HCPCS: 36415; 76817; 80053; 81001; 84702; 84703; 85025; 86900; 86901; 87086; 96361; 96374; 99284; A9270; J2405; J3490; J7030

== ENCOUNTER 2023-01-10 12:49 | Emergency (ER) | payer BC ==
[2023-01-10] MEDS ORDERED: Sodium Chloride 0.9% 2.5 ML Syringe FLUSH PRN (12:58)
[2023-01-10] MEDS ORDERED: Metoclopramide 10 MG/2 ML SDV IVPUSH ONE (12:58)
[2023-01-10] MEDS ORDERED: diphenhydrAMINE 50 MG/ML SDV IVPUSH ONE (12:58)
[2023-01-10] MEDS ORDERED: Sodium Chloride 0.9% 10 ML Syringe FLUSH PRN (12:58)
[2023-01-10] MEDS ORDERED: Lactated Ringers 1,000 ML IV ONE (12:58)
[2023-01-10] MEDS ORDERED: Sodium Chloride 0.9% 1,000 ML IV ONE (13:24)
[2023-01-10] MEDS ORDERED: cefTRIAXone 2 GM in Sodium Chloride 0.9% 50 ML IV ONE (13:24)
[2023-01-10 13:56] LABS: CARBON DIOXIDE,CO2 22.2 mmol/L (21.0-32.0); POTASSIUM,K 3.3 mmol/L (3.5-5.1)
[2023-01-10] MEDS ORDERED: Magnesium Sulfate (4.06 MEQ/ML) 5 GM/10 ML SDV IV ONE (14:17)
[2023-01-10] MEDS ORDERED: Potassium Chloride 20 MEQ Packet PO ONE (14:17)
[2023-01-10] MEDS ORDERED: Magnesium Sulfate/Water 2 GM in Premix Bag 1 BAG IV ONE (14:35)
[2023-01-10] MEDS ORDERED: Sodium Chloride 0.9% 250 ML IV ONE (14:45)
[2023-01-10] MEDS ORDERED: Potassium Chloride 20 MEQ in Premix Bag 1 BAG IV ONE (14:45)
[2023-01-10 15:04] LABS: CORONAVIRUS COVID-19 NAA POSITIVE (NEGATIVE); INFLUENZA A NAA NEGATIVE (NEGATIVE); INFLUENZA B NAA NEGATIVE (NEGATIVE); RESPIRATORY SYNCYTIAL VIR NAA NEGATIVE (NEGATIVE)
[2023-01-10 16:56] VITALS: BP 131/81; PULSE 104
== END 2023-01-10 17:04 | disposition home or self-care (01) ==
LOC: MW.ED 12:49
DX: O98.511 Other viral diseases complicating pregnancy, first trimester (principal); U07.1 COVID-19; O23.01 Infections of kidney in pregnancy, first trimester; N12 Tubulo-interstitial nephritis, not specified as acute or chronic; O99.281 Endocrine, nutritional and metabolic diseases complicating pregnancy, first trimester; E86.0 Dehydration; E87.6 Hypokalemia; E83.42 Hypomagnesemia; Z3A.10 10 weeks gestation of pregnancy
CPT/HCPCS: 0241U; 36415; 80053; 81001; 82947; 83605; 83735; 84100; 84439; 84443; 85025; 87040; 87086; 93005; 96365; 96367; 99285; J0696; J3475; J3480; J3490; J7030; J7050; J7120; 93010; 99291

== ENCOUNTER 2024-03-13 11:40 | Emergency (ER) | payer BC ==
[2024-03-13] MEDS: Metoclopramide 10 MG/2 ML SDV IVPUSH ONE (12:11)
[2024-03-13] MEDS: Dextrose 5%-0.9% NaCl 1,000 ML IV STA (12:11)
[2024-03-13 12:21] LABS: BASOPHILS ABSOLUTE AUTO 0.03 K/uL (0.00-0.20); BASOPHILS PERCENT AUTO 0.4 % (0.0-1.0); EOSINOPHILS ABSOLUTE AUTO 0.05 K/uL (0.00-0.45); EOSINOPHILS PERCENT AUTO 0.7 % (0.0-6.0); HEMATOCRIT 39.3 % (37.0-47.0); HEMOGLOBIN 13.7 g/dL (12.0-16.0); IMMATURE GRAN ABSOLUTE AUTO 0.02 K/uL (0.00-0.05); IMMATURE GRAN PERCENT AUTO 0.3 % (0.0-0.4); LYMPHOCYTES ABSOLUTE AUTO 1.43 K/uL (1.00-4.80); LYMPHOCYTES PERCENT AUTO 18.6 % (24.0-44.0); MEAN CORPUSCULAR HEMOGLOBIN 29.2 pg (28.0-32.0); MEAN CORPUSCULAR HGB CONC 34.9 g/dL (32.0-36.0); MEAN CORPUSCULAR VOLUME 83.8 fL (83.0-99.0); MONOCYTES PERCENT AUTO 5.2 % (0.0-8.0); NEUTROPHILS ABSOLUTE AUTO 5.76 K/uL (1.80-7.70); NEUTROPHILS PERCENT AUTO 74.8 % (41.0-71.0); PLATELET COUNT,PLT 264 K/uL (150-400); RED BLOOD CELL COUNT 4.69 M/uL (4.10-5.30); WHITE BLOOD CELL COUNT,WBC 7.69 K/uL (3.9-11.3)
[2024-03-13 12:41] LABS: APPEARANCE,URINE SLT CLOUDY; BILIRUBIN,URINE NEGATIVE (NEGATIVE); COLOR,URINE YELLOW; GLUCOSE,URINE 500 mg/dL (NEGATIVE); KETONES,URINE NEGATIVE (NEGATIVE); LEUKOCYTE ESTERASE,URINE NEGATIVE (NEGATIVE); NITRITE,URINE NEGATIVE (NEGATIVE); OCCULT BLOOD,URINE NEGATIVE (NEGATIVE); PH,URINE 6.5 (5.0-8.0); PROTEIN,URINE NEGATIVE (NEGATIVE); UROBILINOGEN,URINE 0.2 EU/dL (<2.0)
[2024-03-13 13:04] LABS: A/G RATIO 1.1 (0.9-1.6); ALBUMIN 3.7 g/dL (3.4-5.0); BILIRUBIN TOTAL 0.5 mg/dL (0.2-1.0); CALCIUM 9.3 mg/dL (8.5-10.1); CARBON DIOXIDE,CO2 23.7 mmol/L (21.0-32.0); CREATININE 0.7 mg/dL (0.6-1.0); EST CRCL DRUG DOSING (CG) 128.39 mL/min; POTASSIUM,K 3.6 mmol/L (3.5-5.1); PROTEIN TOTAL,TP 7.2 g/dL (6.4-8.2)
[2024-03-13] MEDS: Sodium Chloride 0.9% 1,000 ML IV ONE (13:36)
[2024-03-13 15:53] VITALS: BP 108/69; PULSE 64
== END 2024-03-13 15:52 | disposition home or self-care (01) ==
LOC: MW.ED 11:40
DX: O21.9 Vomiting of pregnancy, unspecified (principal); Z3A.00 Weeks of gestation of pregnancy not specified; Z75.8 Other problems related to medical facilities and other health care; Z79.899 Other long term (current) drug therapy
CPT/HCPCS: 36415; 80053; 81003; 85025; 96361; 96374; 99284; J2765; J7030; J7042

== ENCOUNTER 2024-09-28 19:07 | Inpatient (IN) | payer BC ==
[2024-09-28] MEDS ORDERED: Sodium Chloride 0.9% 10 ML Syringe FLUSH PRN (19:33)
[2024-09-28] MEDS ORDERED: Carboprost Tromethamine 250 MCG/1 mL Vial IM PRN (19:33)
[2024-09-28] MEDS ORDERED: Butorphanol 2 MG/ML SDV IVPUSH PRN (19:33)
[2024-09-28] MEDS ORDERED: Sodium Chloride 0.9% 2.5 ML Syringe FLUSH PRN (19:33)
[2024-09-28] MEDS ORDERED: Lidocaine 1% 50 ML MDV INJECT PRN (19:33)
[2024-09-28] MEDS ORDERED: Misoprostol 200 MCG Tab PO PRN (19:33)
[2024-09-28] MEDS ORDERED: Methylergonovine 0.2 MG/1 ML Amp IM PRN (19:33)
[2024-09-28] MEDS ORDERED: Ondansetron 4 MG/2 ML SDV IVPUSH PRN (19:33)
[2024-09-28] MEDS ORDERED: Sodium Chloride 0.9% 20 ML SDV IV PRN (19:33)
[2024-09-28] MEDS ORDERED: Water For Irrigation,Sterile 1,000 ML Container IRR PRN (19:33)
[2024-09-28] MEDS ORDERED: Acetaminophen 325 MG Tab PO PRN (19:33)
[2024-09-28] MEDS: Ampicillin 2 GM in Sodium Chloride 0.9% 100 ML IV ONE (22:50)
[2024-09-28] MEDS: Lactated Ringers 1,000 ML IV SCH (22:50)
[2024-09-28 23:21] LABS: HEMATOCRIT 36.3 % (37.0-47.0); HEMOGLOBIN 12.2 g/dL (12.0-16.0); MEAN CORPUSCULAR HEMOGLOBIN 26.9 pg (28.0-32.0); MEAN CORPUSCULAR HGB CONC 33.6 g/dL (32.0-36.0); MEAN PLATELET VOLUME 10.6 fL (9.4-12.3); PLATELET COUNT,PLT 243 K/uL (150-400); RED BLOOD CELL COUNT 4.54 M/uL (4.10-5.30); WHITE BLOOD CELL COUNT,WBC 8.76 K/uL (3.9-11.3)
[2024-09-29] MEDS: Calcium Carbonate 500 MG Tab.Chew PO PRN ×2 (01:20→18:29)
[2024-09-29] MEDS: Ampicillin 1 GM in Sodium Chloride 0.9% 50 ML IV SCH (03:26)
[2024-09-29] MEDS ORDERED: Bupivacaine 0.5% 10 ML SDV ONE (04:02)
[2024-09-29] MEDS ORDERED: Phenylephrine HCl In 0.9% NaCl 1 MG/10 ML Syringe ONE (04:02)
[2024-09-29] MEDS ORDERED: Ropivacaine HCl/PF 200 ML ONE (04:02)
[2024-09-29] MEDS ORDERED: ePHEDrine 50 MG/ML SDV IM PRN (04:24)
[2024-09-29] MEDS ORDERED: Bupivacaine 0.5% 10 ML SDV INJECT ONE (04:24)
[2024-09-29] MEDS ORDERED: ePHEDrine 50 MG/ML SDV IVPUSH PRN (04:24)
[2024-09-29] MEDS ORDERED: Phenylephrine HCl In 0.9% NaCl 1 MG/10 ML Syringe IVPUSH PRN (04:24)
[2024-09-29] MEDS ORDERED: dexmedeTOMIDine HCl 200 MCG/2 ML SDV EPIDUR SCH (04:30)
[2024-09-29] MEDS: Ropivacaine HCl/PF 400 MG in Premix Bag 1 BAG EPIDUR SCH (05:04)
[2024-09-29] MEDS: Oxytocin/0.9 % Sodium Chloride 30 UNIT/500 ML BAG IV STA (05:14)
[2024-09-29] MEDS ORDERED: Lanolin 100% Cream 7 GM Tube TOP PRN (05:45)
[2024-09-29] MEDS ORDERED: diphenhydrAMINE 50 MG Cap PO PRN (05:45)
[2024-09-29] MEDS ORDERED: Simethicone 80 MG Tab.Chew PO PRN (05:45)
[2024-09-29] MEDS ORDERED: Acetaminophen 500 MG Tab PO PRN (05:45)
[2024-09-29 05:55] LABS: PH,UMBILICAL ARTERIAL 7.312 (7.18-7.38); PH,UMBILICAL VENOUS 7.348 (7.25-7.45)
[2024-09-29] MEDS: Benzocaine/Menthol 20%-0.5% Spray 78 GM Cannister TOP PRN (09:24)
[2024-09-29] MEDS: Witch Hazel Medicated Pads 40/Jar TOP PRN (09:24)
[2024-09-29] MEDS: Prenatal Multivitamin with Calcium/Folic Acid/Iron Tab PO SCH (09:24)
[2024-09-29] MEDS: Ibuprofen 800 MG Tab PO PRN (09:24)
[2024-09-29] MEDS: Ferrous Sulfate 325 MG Tab PO SCH (09:24)
[2024-09-30 05:18] LABS: HEMATOCRIT 31.5 % (37.0-47.0); HEMOGLOBIN 10.5 g/dL (12.0-16.0); MEAN CORPUSCULAR HEMOGLOBIN 26.9 pg (28.0-32.0); MEAN CORPUSCULAR HGB CONC 33.3 g/dL (32.0-36.0); MEAN CORPUSCULAR VOLUME 80.8 fL (83.0-99.0); MEAN PLATELET VOLUME 10.2 fL (9.4-12.3); PLATELET COUNT,PLT 201 K/uL (150-400)
[2024-09-30] MEDS: Docusate Sodium 100 MG Cap PO PRN (08:21)
[2024-09-30 12:10] VITALS: BP 124/67; PULSE 78
== END 2024-09-30 12:16 | disposition home or self-care (01) | DRG 560 ==
LOC: MW.OBCHECK 19:07 → MW.OB 19:07 → MW.OBCHECK 21:55 → OBSVTOIN 09-29 05:13 → MW.OB 09-29 10:03
PROVIDERS: ADMIT Obstetrics & Gynecology; ATTEND Obstetrics & Gynecology
PROC: 10E0XZZ Delivery of Products of Conception, External Approach (ICD-10-PCS; principal; 2024-09-29)
PROC: 3E0R3BZ Introduction of Anesthetic Agent into Spinal Canal, Percutaneous Approach (ICD-10-PCS; 2024-09-29)
PROC: 10907ZC Drainage of Amniotic Fluid, Therapeutic from Products of Conception, Via Natural or Artificial Opening (ICD-10-PCS; 2024-09-29)
PROC: 00HU33Z Insertion of Infusion Device into Spinal Canal, Percutaneous Approach (ICD-10-PCS; 2024-09-29)
DX: O90.81 Anemia of the puerperium (principal); Z3A.37 37 weeks gestation of pregnancy; Z37.0 Single live birth; D62 Acute posthemorrhagic anemia
CPT/HCPCS: 36415; 59025; 59409; 82803; 85027; 86592; 86850; 86900; 86901; A9270-GY; J0290; J0665; J2371; J2590; J2795; J3490; J7120